=== PATIENT | male | born 1940 | race Caucasian/White ===

== ENCOUNTER → 2020-12-04 | Outpatient (CLI) | payer OTHER, BC ==
[~2020-12-04] MED LIST: BENICAR40 MG PO; CENTRUM SILVER1 EAC4 PO; CLEOCIN HCL300 MG PO; FISH OIL 1,001000 M2 PO; LEVOXYL75 MCG PO; NORVASC5 MG PO; PERCOCET 5-3251 EACH PO
== END ==
LOC: HYPER 09:42
PROVIDERS: ATTEND Specialist
DX: R21 Rash and other nonspecific skin eruption (principal); L89.151 Pressure ulcer of sacral region, stage 1; L24.0 Irritant contact dermatitis due to detergents; T14.8XXD Other injury of unspecified body region, subsequent encounter; B36.9 Superficial mycosis, unspecified; E03.9 Hypothyroidism, unspecified; E78.5 Hyperlipidemia, unspecified; I25.10 Atherosclerotic heart disease of native coronary artery without angina pectoris; I10 Essential (primary) hypertension; I83.90 Asymptomatic varicose veins of unspecified lower extremity; I48.20 Chronic atrial fibrillation, unspecified; R56.1 Post traumatic seizures; N42.9 Disorder of prostate, unspecified; M10.9 Gout, unspecified; M54.16 Radiculopathy, lumbar region; M43.00 Spondylolysis, site unspecified; M15.8 Other polyosteoarthritis; Z87.891 Personal history of nicotine dependence; Z95.1 Presence of aortocoronary bypass graft; X58.XXXD Exposure to other specified factors, subsequent encounter